=== PATIENT | female | born 1980 | race Caucasian/White ===

== ENCOUNTER 2016-07-12 19:05 | Emergency (ER) | payer OTHER ==
[~2016-07-12] VITALS: Ht 165.1 cm; Wt 108.9 kg
[~2016-07-12 19:05] MED LIST: BENADRYL50 MG PO; FERROUS SULFAT325 MG PO; MOTRIN800 MG PO; PRENATAL VITAMI1 T10 PO
[2016-07-12 19:35] VITALS: BP 115/79
--- NOTE | 2016-07-12 19:49 | NUR ---
PATIENT AMBULATED TO ER BED 08
--- NOTE | 2016-07-12 19:53 | NUR ---
35Y/F PATIENT PRESENTS TO ED WITH C/O NASAL CONGESTION X 1 WK. PT STATES BEEN HAVING FEVER SINCE LAST WEDNESDAY WITH NASAL CONGESTION, SORE THROAT AND RUNNING NOSE. DENIES N/V/D; SKIN IS PINK/WARM/DRY; AAOX4 WITH EVEN AND STEADY GAIT; LUNGS CLEAR BL, RUNNING NOSE; HR EVEN AND REGULAR; PT DENIES ANY FEVER, CP, SOB, OR COUGH AT THIS TIME; PATIENT STATES PAIN OF 10/10 AT THIS TIME; VSS; PATIENT POSITIONED FOR COMFORT; HOB ELEVATED; BEDRAILS UP X2; BED DOWN. ER MD MADE AWARE OF PT STATUS.
[2016-07-12] MEDS ORDERED: KETOROLAC 30 MG/ML VIAL IM ONE (20:05)
[2016-07-12] MEDS ORDERED: DEXAMETHASONE 10 MG/ML VIAL IM ONE (20:35)
[2016-07-12 20:54] VITALS: BP 115/79
--- NOTE | 2016-07-12 20:55 | NUR ---
Patient discharged with v/s stable. Written and verbal after care instructions given and explained. Patient alert, oriented and verbalized understanding of instructions. Ambulatory with steady gait. All questions addressed prior to discharge. ID band removed. Patient advised to follow up with PMD. Rx of MOTRIN 800 MG, KEFLEX 500 MG, FLONASE 50 MCG/ACTUATIION NASAL SPRAY, LOPERAMIDE 2 MG given. Patient educated on indication of medication including possible reaction and side effects. Opportunity to ask questions provided and answered.
== END 2016-07-12 20:53 | disposition home or self-care (01) ==
LOC: MED 19:05
DX: J06.9 Acute upper respiratory infection, unspecified (principal); J02.9 Acute pharyngitis, unspecified; R19.7 Diarrhea, unspecified
CPT/HCPCS: 36415; 87804; 96372; 99284; J1100; J1885

== ENCOUNTER 2016-10-03 19:45 | Emergency (ER) | payer OTHER ==
[~2016-10-03] VITALS: Ht 165.1 cm; Wt 108.9 kg
[2016-10-03 20:06] VITALS: BP 122/70
--- NOTE | 2016-10-03 21:11 | NUR ---
PT TAKEN TO OF2
--- NOTE | 2016-10-03 21:31 | NUR ---
PT IS 36/F BIB SELF TO ED WITH C/O SORETHROAT FOR 2 DAYS, COUGH, STUFFY NOSEDENIES N/V/D; SKIN IS PINK/WARM/DRY; AAOX4 WITH EVEN AND STEADY GAIT; LUNGS CLEAR BL; HR EVEN AND REGULAR; PT DENIES ANY FEVER, CP, SOB AT THIS TIME; PATIENT STATES PAIN OF 6/10 AT THIS TIME; VSS; ER MD MADE AWARE OF PT STATUS.
--- NOTE | 2016-10-03 22:41 | NUR ---
Dr. Pandya evaluating patient
[2016-10-03 22:48] VITALS: BP 119/63
== END 2016-10-03 22:48 | disposition home or self-care (01) ==
LOC: MED 19:45
DX: J02.9 Acute pharyngitis, unspecified (principal)

== ENCOUNTER 2018-10-08 17:50 | Emergency (ER) | payer OTHER ==
[~2018-10-08] VITALS: Ht 165.1 cm; Wt 118.4 kg
[~2018-10-08 17:50] MED LIST changes: -BENADRYL50 MG PO; +FERR325E14 PO; -FERROUS SULFAT325 MG PO; +IBUP-974 PO; -MOTRIN800 MG PO; +PREN-385 PO; -PRENATAL VITAMI1 T10 PO
[2018-10-08 18:09] VITALS: BP 139/74
--- NOTE | 2018-10-08 18:13 | NUR ---
DR SCOTT AT BEDSIDE
--- NOTE | 2018-10-08 18:20 | NUR ---
38 Y FEMALE BIB C/O LLQ X 1 DAY, AND VAGINAL BLEEDING SINCE September. PT REPORTS 2 PADS PER 24 HOURS. PT REPORTS TEST CAME UP POSITIVE. LMP 08/07/18, , 9 WEEKS , 05/11/19. PAIN WITH BLEEDING 01/17. DENIES N/V/D. VSS AT THIS TIME. AA0X4. BED IS DOWN, LOCKED, BED RAIL X 1, ERMD TO SEE PT. MEDHX:PCOS RX:DENIES
--- NOTE | 2018-10-08 18:24 | NUR ---
PT AMB TO RESTROOM, STEADY GAIT
[2018-10-08 18:52] LABS: BASOPHILS % (AUTO) 0.3 % (0.0-2.0); EOSINOPHILS # (AUTO) 0.2 K/uL (0-0.4); EOSINOPHILS % (AUTO) 2.5 % (0.0-4.0); HEMATOCRIT 39.1 % (36-48); HEMOGLOBIN 13.1 g/dL (12.0-16.0); LYMPHOCYTES # (AUTO) 2.1 K/uL (2.5-16.5); LYMPHOCYTES % (AUTO) 24.8 % (20.5-51.1); MEAN CORPUSCULAR HEMOGLOBIN 30 pg (27-31); MEAN CORPUSCULAR HGB CONC 34 g/dL (33-37); MEAN CORPUSCULAR VOLUME 88.7 fL (80-94); MONOCYTES # (AUTO) 0.4 K/uL (0.8-1.0); MONOCYTES % (AUTO) 5.1 % (1.7-9.3); NEUTROPHILS # (AUTO) 5.6 K/uL (1.8-7.7); NEUTROPHILS % (AUTO) 67.3 % (42.2-75.2); PLATELET COUNT (AUTO) 267 K/uL (140-450); RED BLOOD CELL COUNT(AUTO) 4.41 MIL/uL (4.20-5.40); RED CELL DISTRIBUTION WIDTH 13.4 % (11.6-13.7); WHITE BLOOD COUNT (AUTO) 8.3 K/uL (4.8-10.8)
[2018-10-08 18:54] LABS: APPEARANCE,URINE SL CLOUDY (CLEAR); BILIRUBIN,URINE 1+ (NEGATIVE); BLOOD, URINE 3+ (NEGATIVE); COLOR,URINE BROWN (YELLOW); LEUKOCYTE ESTERASE ,URINE TRACE (NEGATIVE); NITRITE, URINE NEGATIVE (NEGATIVE); PH,URINE 5.5 (5.0-9.0); UGLUCOSE NEGATIVE (NEGATIVE)
[2018-10-08 19:00] LABS: ANION GAP 11.1 (8-16); CARBON DIOXIDE 25.8 mmol/L (21-32); POTASSIUM 3.9 mmol/L (3.5-5.1)
[2018-10-08 19:05] LABS: RBC,URINE TOO NUMEROUS TO COUN /HPF (0-5); WBC,URINE 0-5 /HPF (0-5)
--- NOTE | 2018-10-08 19:45 | NUR ---
DR WONG AT BEDSIDE
[2018-10-08 20:21] VITALS: BP 132/75
--- NOTE | 2018-10-08 20:21 | NUR ---
Patient discharged with v/s stable. Written and verbal after care instructions given and explained. Patient alert, oriented and verbalized understanding of instructions. Ambulatory with steady gait. All questions addressed prior to discharge. ID band removed. Patient advised to follow up with PMD. Rx of CHRISTIAN POTTS given. Patient educated on indication of medication including possible reaction and side effects. Opportunity to ask questions provided and answered.
== END 2018-10-08 20:21 | disposition home or self-care (01) ==
LOC: MED 17:50
DX: O20.0 Threatened abortion (principal); Z3A.08 8 weeks gestation of pregnancy; Z90.49 Acquired absence of other specified parts of digestive tract; Z79.1 Long term (current) use of non-steroidal anti-inflammatories (NSAID); Z79.899 Other long term (current) drug therapy
CPT/HCPCS: 36415; 76805; 80048; 81001; 81025; 84702; 85025; 86900; 86901; 87086; 99284; Q0092

== ENCOUNTER 2019-07-12 17:50 | Inpatient (IN) | payer OTHER ==
[~2019-07-12] VITALS: Ht 165.1 cm; Wt 124.3 kg
[2019-07-12] MEDS: LACTATED RINGERS 1,000 ML IV SCH (18:31)
[2019-07-12 18:55] VITALS: BP 124/65
[2019-07-12 19:51] LABS: BASOPHILS % (AUTO) 0.1 % (0.0-2.0); EOSINOPHILS # (AUTO) 0.1 K/uL (0-0.4); EOSINOPHILS % (AUTO) 1.1 % (0.0-4.0); HEMATOCRIT 37.4 % (36-48); LYMPHOCYTES # (AUTO) 1.6 K/uL (2.5-16.5); MEAN CORPUSCULAR HEMOGLOBIN 30 pg (27-31); MEAN CORPUSCULAR HGB CONC 35 g/dL (33-37); MEAN CORPUSCULAR VOLUME 86.2 fL (80-94); MONOCYTES # (AUTO) 0.4 K/uL (0.8-1.0); MONOCYTES % (AUTO) 4.7 % (1.7-9.3); NEUTROPHILS # (AUTO) 5.5 K/uL (1.8-7.7); NEUTROPHILS % (AUTO) 73.1 % (42.2-75.2); PLATELET COUNT (AUTO) 268 K/uL (140-450); RED BLOOD CELL COUNT(AUTO) 4.34 MIL/uL (4.20-5.40); RED CELL DISTRIBUTION WIDTH 13.4 % (11.6-13.7); WHITE BLOOD COUNT (AUTO) 7.5 K/uL (4.8-10.8)
[2019-07-12 19:56] LABS: APPEARANCE,URINE CLEAR (CLEAR); BILIRUBIN,URINE NEGATIVE (NEGATIVE); BLOOD, URINE NEGATIVE (NEGATIVE); COLOR,URINE YELLOW (YELLOW); LEUKOCYTE ESTERASE ,URINE NEGATIVE (NEGATIVE); NITRITE, URINE NEGATIVE (NEGATIVE); UGLUCOSE TRACE (NEGATIVE)
[2019-07-12 20:04] LABS: ANION GAP 8.1 (8-16); CARBON DIOXIDE 29.5 mmol/L (21-32); CREATININE 0.8 mg/dL (0.6-1.3); POTASSIUM 3.6 mmol/L (3.5-5.1); PROTHROMBIN TIME 9.7 secs (10.8-13.4); TOTAL BILIRUBIN 0.5 mg/dL (0.0-1.0)
[2019-07-12] MEDS ORDERED: MISOPROSTOL 200 MCG TAB ONE (20:10)
[2019-07-12] MEDS ORDERED: MISOPROSTOL 100 MCG TAB VG SCH (20:30)
[2019-07-12] MEDS ORDERED: OXYTOCIN 20 UNITS in LACTATED RINGERS 1,000 ML IV PRN (22:20)
[2019-07-12] MEDS ORDERED: TEMAZEPAM 15 MG CAP ONE (23:55)
[2019-07-12] MEDS ORDERED: TEMAZEPAM 15 MG CAP PO ONE (23:55)
[2019-07-13] MEDS ORDERED: BUPIVACAINE 0.125%/NS PREMIX 250 ML EPI SCH (00:25)
[2019-07-13] MEDS ORDERED: EPIDURAL KEYS MC ONE ×2 (00:28→19:51)
[2019-07-13] MEDS ORDERED: BUPIVACAINE 0.125%/NS PREMIX 250 ML ONE (00:30)
[2019-07-13] MEDS ORDERED: MISOPROSTOL 100 MCG TAB VG SCH ×2 (06:00→17:05)
[2019-07-13] MEDS ORDERED: MISOPROSTOL 200 MCG TAB ONE ×3 (06:03→19:08)
[2019-07-13] MEDS: LACTATED RINGERS 1,000 ML IV SCH (10:23)
[2019-07-13] MEDS ORDERED: AMPICILLIN 2,000 MG VIAL ONE (20:06)
[2019-07-13] MEDS: guaiFENesin 20 MG/ML UDC PO PRN (20:35)
[2019-07-13] MEDS: TEMAZEPAM 15 MG CAP PO PRN (22:54)
[2019-07-14] MEDS ORDERED: AMPICILLIN 2,000 MG VIAL ONE ×4 (00:25→12:19)
[2019-07-14] MEDS: AMPICILLIN 2,000 MG in NACL 0.9% 100 ML IV SCH ×4 (00:32→12:25)
[2019-07-14] MEDS ORDERED: MISOPROSTOL 200 MCG TAB ONE (03:10)
[2019-07-14] MEDS ORDERED: MISOPROSTOL 100 MCG TAB VG ONE (03:35)
[2019-07-14] MEDS ORDERED: OXYTOCIN 20 UNITS/LR PREMIX 1,000 ML IV ONE (07:54)
[2019-07-14] MEDS ORDERED: ALBUTEROL SULFATE/IPRATROPIU 3 ML SOL IH SCH (13:00)
[2019-07-14] MEDS ORDERED: CAMERA MC ONE (13:13)
[2019-07-14] MEDS ORDERED: BUDESONIDE 0.5 MG/2 ML NEBU INH SCH (13:30)
[2019-07-14] MEDS ORDERED: OXYTOCIN 20 UNITS in LACTATED RINGERS 1,000 ML IV SCH (14:26)
[2019-07-14] MEDS ORDERED: IBUPROFEN 600 MG TAB PO PRN (14:30)
[2019-07-14] MEDS ORDERED: ACETAMINOPHEN 325 MG TAB PO PRN (14:30)
[2019-07-14] MEDS ORDERED: MEASLES, MUMPS, AND RUBELLA 1 VIAL SQVAC PRN (14:30)
[2019-07-14] MEDS: guaiFENesin 20 MG/ML UDC PO PRN (16:30)
[2019-07-14] MEDS ORDERED: PHENAZOPYRIDINE 100 MG TAB ONE (23:08)
[2019-07-14] MEDS: PHENAZOPYRIDINE 100 MG TAB PO SCH (23:19)
[2019-07-15] MEDS: guaiFENesin 20 MG/ML UDC PO PRN ×2 (00:31→09:18)
[2019-07-15] MEDS: TEMAZEPAM 15 MG CAP PO PRN (00:31)
[2019-07-15] MEDS: PHENAZOPYRIDINE 100 MG TAB PO SCH (09:19)
[2019-07-15] MEDS ORDERED: ROB PO (11:58)
== END 2019-07-15 13:24 | disposition home or self-care (01) | DRG 544 ==
LOC: MFCC 17:50
PROVIDERS: ADMIT Obstetrics & Gynecology; ATTEND Obstetrics & Gynecology
PROC: 10D17ZZ Extraction of Products of Conception, Retained, Via Natural or Artificial Opening (ICD-10-PCS; principal; 2019-07-14)
PROC: 3E0P7VZ Introduction of Hormone into Female Reproductive, Via Natural or Artificial Opening (ICD-10-PCS; 2019-07-14)
PROC: 00HU33Z Insertion of Infusion Device into Spinal Canal, Percutaneous Approach (ICD-10-PCS; 2019-07-14)
PROC: 3E0R3BZ Introduction of Anesthetic Agent into Spinal Canal, Percutaneous Approach (ICD-10-PCS; 2019-07-14)
DX: O02.1 Missed abortion (principal); O99.820 Streptococcus B carrier state complicating pregnancy; Z3A.16 16 weeks gestation of pregnancy
CPT/HCPCS: 36415; 59200; 59409; 76815; 80053; 81003; 85025; 85379; 85384; 85610; 85730; 86886; 86900; 86901; 87804; J0290; J2590; J3490; J7120; J7626; Q0092